=== PATIENT | male | born 1970 | race Caucasian/White ===

== ENCOUNTER 2016-10-03 08:29 | Day surgery (SDC) | payer OTHER ==
[2016-10-03] VITALS (8 sets, daily range): BP systolic 138–149; BP diastolic 90–105; PULSE 54–68; RESP 14–20; O2SAT 95–98
[~2016-10-03] VITALS: Ht 170.2 cm; Wt 94.8 kg
--- NOTE | 2016-10-03 07:01 | PCM.HPANE ---
Patient Data Surgeon Admitting Provider: Attending Provider:Hillary Garcia MD Primary Care Physician:Melissa Other Provider:Markel Colon Anesthesia Reason for Visit Bladder Neoplasm Ht/WT & BMI Height (Feet): 5 Height (Inches): 7.00 Weight (Kilograms): 96.340 Body Mass Index 33.00 Allergies Coded Allergies: No Known Allergies (Unverified , 10/02/16) Past Anesthesia History Anesthesia History: Denies:: Abnormal Airway, Anesthesia Reactions, Difficult Intubation Diabetes History Hx Diabetes?: No MRSA MRSA: No Medications Hypertension Medication: Yes Home Meds Incl Beta [place]: No Reported Medications Losartan Potassium 50 Mg [id number] Mg PO DAILY 10/02/16 History HEENT History: Positive for:: Hearing Problem Denies:: Abnormal Airway Cataracts Difficult Intubation Dysphagia Glaucoma Sinus Problem TMJ Hx of Heart Problems?: Yes Cardiovascular History: Positive for:: Hypertension Denies:: AICD Edema Heart Murmur Irregular Heartbeat Pacemaker Peripheral Vascular Hx of Respiratory Problem?: No Respiratory History: Denies:: COPD Chest Surgery Emphysema Hemoptysis Oxygen Administration Pneumonia Tuberculosis Use of C-PAP Machine Hx Neurologic Problems?: No Neurological History: Denies:: CVA Dementia Dizziness Headaches Multiple Sclerosis Parkinson's Disease Seizures TIA Hx of GI Problems?: Yes Gastrointestinal History: Positive for:: Diverticulitis (hx of ) Denies:: Gall Bladder Disease Gastroesphageal Reflux Gastrointestinal Bleeding Heartburn Hepatitis Hiatal Hernia Liver Disease Rectal Bleeding Hx of Problems?: Yes Genitourinary History: Denies:: Kidney Stones Other Pertinent History: bladder tumor current admission problem, past hx of bladder tumor Male Hx: Denies:: Prostate Problems Scrotal Mass Testicular Surgery Skin History: Denies:: History Skin Disorders? Pressure Ulcers Hx Musculoskeletal Problems?: Yes Musculoskeletal History: Denies:: Fibromyalgia Joint Replacement Osteoarthritis Hx of Psycho/Social Problems?: No Psycho Social History: Denies:: Anxiety Hx Depression Hx Surgeries?: Yes (lasik, bladder turbt, ORIF zygomatic arch) Hx Any Other Health Problems?: Yes Other History: Denies:: Cancer Thyroid Disease History Blood Transfusions: Positive for:: Accept Blood Products? Denies:: Blood Transfusions Hx Diabetes: No Hx Alcohol Use: YesAlcoholic Drinks Per Day: varies sometimes drink daily, others only weekendsHx Substance Use: NoHave You Smoked inLast 12 mo: No Stop/Bang S-Snoring: Do You Snore Loudly: Yes T-Tired: feel tired, fatigued: No O-Obsered: Observed not breath: Yes P-Blood Pressure: treated: Yes B- Body Mass Index > 35 kg/m2: No A- Age over 50: No N- Neck Large Circumference: No G- Gender Male: Yes LOREN Total Score: 4 LOREN Risk Assessment: High Risk, =/>3 Yes LOREN Category 4 OutPt Procedure: Yes Risk Assessment Category Category 1A: Patient has history of documented sleep apnea, and HAS NOT received any narcotic, sedative or anesthesia administration during this stay. Category 1B: Patient has history of documented sleep apnea, and HAS received any narcotic , sedative or anesthesia administration during this stay Category 2: Patient has SUSPECTED Obstructive Sleep Apnea, and HAS received any narcotic , sedative or anesthesia administration during this stay. Category 3: Patient has SUSPECTED Obstructive Sleep Apnea and HAS NOT received narcotic, sedative or anesthesia administration during this stay. Category 4: Outpatient in Procedural Areas with known sleep apnea or who screen positive for High Risk via the STOP/BANG questionnaire. Exam Exam General Appearance: Alert, Oriented X3, Cooperative, No Acute Distress HEENT/AIRWAY: MP 2 Lungs: Clear to Auscultation, Normal Air Movement Heart: Exam Unremarkable, Regular Rate/Rhythm, No Murmurs/Rubs/Gallops Plan Impression Patient chart reviewed, patient interviewed and anesthestic plan with risks, benefits, and alternatives discussed, and informed consent obtained. ASA Physical Status: ASA2 Mod Systemic Disease Anesthetic Plan: GA Bene/Risks/Altern/Consents: Yes HP Complete Prior to Induction: Yes Reese Calloway MD Oct 03, 2016 07:01
[~2016-10-03 08:29] MED LIST: CeFAZolin 2 Gm/50 mL D5W IV Premix IV ONE; LOSA50TA37 PO
[2016-10-03] MEDS ORDERED: Propofol 10,000 mCg/mL 20 mL Inj ONE (08:30)
[2016-10-03] MEDS ORDERED: Ondansetron 2 mg/mL 2 mL Inj ONE (08:30)
[2016-10-03] MEDS ORDERED: fentaNYL-PF 50 mCg/mL 2 mL Inj ONE (08:30)
[2016-10-03] MEDS ORDERED: Dexamethasone 4 mg/mL Inj ONE (08:30)
[2016-10-03] MEDS: Lactated Ringer's 1,000 ML IV SCH ×2 (08:43→09:30)
[2016-10-03] MEDS ORDERED: Belladonna Alk-Opium 60 mg Rectal Suppository RECTAL ONE (09:50)
[2016-10-03] MEDS ORDERED: Lactated Ringer's 1,000 ML IV ONE (10:03)
[2016-10-03] MEDS ORDERED: Lactated Ringer's 500 ML IV PRN (10:13)
[2016-10-03] MEDS ORDERED: Lactated Ringer's 1,000 ML IV SCH (10:13)
[2016-10-03] MEDS ORDERED: Ondansetron 2 mg/mL 2 mL Inj IVPUSH PRN (10:15)
[2016-10-03] MEDS ORDERED: Phenylephrine 10,000 mCg/mL Inj IVPUSH PRN (10:15)
[2016-10-03] MEDS ORDERED: MetoCLOpramide 5 mg/mL 2 mL Inj IVPUSH PRN (10:15)
[2016-10-03] MEDS ORDERED: fentaNYL-PF 50 mCg/mL 2 mL Inj IVPUSH PRN (10:15)
[2016-10-03] MEDS ORDERED: Labetalol 5 mg/mL 4 mL Inj IV PRN (10:15)
[2016-10-03] MEDS ORDERED: HYDROmorphone 1 mg/mL Inj IVPUSH PRN (10:15)
[2016-10-03] MEDS ORDERED: Dexamethasone 4 mg/mL Inj IVPUSH PRN (10:15)
[2016-10-03] MEDS ORDERED: EPHEDrine Sulfate 50 mg/mL Inj IVPUSH PRN (10:15)
[2016-10-03] MEDS ORDERED: Atropine 0.4 mg/mL Inj IVPUSH PRN (10:15)
[2016-10-03] MEDS ORDERED: hydrALAZINE 20 mg/mL Inj IVPUSH PRN (10:15)
--- NOTE | 2016-10-03 10:15 | PCM.ANEP1 ---
Post Anesthesia Phase 1 PACU Phase 1 Assessment Vital Signs Vital Signs Date Time Temp Pulse Resp B/P Pulse Ox O2 Delivery O2 Flow Rate FiO2 10/03/16 10:10 68 17 145/96 96 Room Air 10/03/16 10:05 36.3 61 20 138/96 98 Simple Mask 10 10/03/16 08:53 36 59 18 145/93 97 Room Air Level of Alertness: Awake, talking ARGUELLES's with Equal Strength: Yes Pain: No Nausea or Vomiting: No Oxygen Delivery: Simple Mask Lungs: Clear to Auscultation, Normal Air Movement Reese Calloway MD Oct 03, 2016 10:15
--- NOTE | 2016-10-03 10:35 | OP ---
[address] [address] OPERATIVE REPORT PATIENT: ROSA BRIONES : 1970 MR#: [id number] ADMIT: 10/03/2016 JOB ID: [id number] DATE OF SURGERY: 10/03/2016 SURGEON: Hillary Garcia MD PREOPERATIVE DIAGNOSIS(ES): Bladder cancer. POSTOPERATIVE DIAGNOSIS(ES): Bladder cancer. PROCEDURE: Cystoscopy, transurethral resection of bladder tumor, medium. ANESTHESIA: General anesthetic, Dr. Calloway. DESCRIPTION OF PROCEDURE: Under general anesthetic, the patient placed in the lithotomy position. The genitalia prepped and draped in a sterile manner. The urethra was dilated to 30-Danish with Shanell sounds. A 26-Danish Crew resectoscope was introduced into the bladder. 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 Average diameter 3.5 cm. Resectoscope was then used to resect all tumor and the base cauterized. Following removal of chips and achieving of hemostasis, it was elected to leave a 20-Danish 5 [address] catheter in place. The patient tolerated the procedure well. A B and O suppository was given for postoperative analgesia. The patient left the operating room in good condition with clear urine draining from the Taylor catheter.
[2016-10-03] MEDS ORDERED: HYDROcodone-APAP 5-325 mg Tablet PO ONE (10:58)
--- NOTE | 2016-10-03 11:09 | PCM.ANEP2 ---
Post Anesthesia Evaluation ASA/CMS Post Anesthesia VS in Patient's Normal Range?: Yes Resp Stable; Airway Patent?: Yes CV Function & Hydration Stable: Yes Mental Status Recovered?: Yes Pain control Satisfactory?: Yes N/V Control Satisfactory?: Yes Reese Calloway MD Oct 03, 2016 11:09
--- NOTE | 2016-10-04 11:42 | PATH ---
SURGICAL PATHOLOGY Attending Physician:Hillary Garcia MD () CASE STATUS: Signed Out PATIENT NAME: ROSA BRIONES PID: [id number] : 1970 DATE COLLECTED:10/03/2016 17:17 SPECIMEN: Bladder, Biopsy CLINICAL HISTORY: A: BLADDER TUMOR FINAL DIAGNOSIS: 1.URINARY BLADDER BIOPSY: PAPILLARY UROTHELIAL CARCINOMA, HIGH GRADE. NEGATIVE FOR EVIDENCE OF INVASION OF LAMINA PROPRIA. MUSCULARIS PROPRIA PRESENT, BUT NEGATIVE FOR TUMOR. ICD10 CODE C67.9 GROSS DESCRIPTION: The specimen is received in one formalin filled container labeled with the patient's name, sublabeled "bladder tumor" and consists of 3 portions of tissue which aggregate to 0.5 x 0.5 x 0.4 CM. The specimen is entirely submitted in one cassette. 10/03/2016 [facility] MICRO DESCRIPTION: See diagnosis. ICD-9 CODES: CPT CODES: 1: 91901 Electronically Signed Out Meng Rowe MD [facility] Pathology [facility] [address], [place] [address] Technical component performed at [facility], [facility] [address], [place], [address]
== END 2016-10-03 23:59 | disposition home or self-care (01) ==
LOC: SAS 08:29
PROVIDERS: ATTEND Urology
DX: C67.9 Malignant neoplasm of bladder, unspecified (principal); I10 Essential (primary) hypertension
CPT/HCPCS: 52235; J0690; J1100; J2250; J2405; J7120